=== PATIENT | male | born 1985 | race Caucasian/White ===

== ENCOUNTER 2020-12-24 21:40 | Emergency (ER) | payer BC ==
[2020-12-24 22:03] VITALS: BP 110/62; PULSE 67; TEMP 98.5; BMI 26.3
[2020-12-24] MEDS ORDERED: FLUORESCEIN NA 1 EA STRIP OU ONE (22:43)
[2020-12-24] MEDS ORDERED: TETRACAINE 0.5% OPHTH SOLN 2 ML BOTTLE OU ONE (22:43)
[2020-12-24] MEDS ORDERED: TETRACAINE 0.5% OPHTH SOLN 2 ML BOTTLE ONE (22:45)
[2020-12-24] MEDS ORDERED: FLUORESCEIN NA 1 EA STRIP ONE (22:45)
[2020-12-25] MEDS ORDERED: DIPHTH,PERTUSS(ACELL),TET 0.5 ML DISP.SYRIN IM ONE ×2 (00:03→00:08)
[2020-12-25] MEDS ORDERED: IBUPROFEN 400 MG TABLET (FP) PO ONE ×2 (01:51→01:54)
== END 2020-12-25 04:06 | disposition short-term general hospital (02) ==
LOC: JER 21:40
PROC: 3E0234Z Introduction of Serum, Toxoid and Vaccine into Muscle, Percutaneous Approach (ICD-10-PCS; principal; 2020-12-24)
DX: T15.01XA Foreign body in cornea, right eye, initial encounter (principal); T15.02XA Foreign body in cornea, left eye, initial encounter
CPT/HCPCS: 76529; 90715; 99284-25

== ENCOUNTER 2021-05-18 15:37 | Emergency (ER) | payer BC ==
[2021-05-18 16:03] VITALS: BP 128/79; PULSE 93; TEMP 97.9; BMI 25.7
[2021-05-18] MEDS ORDERED: IBUPROFEN 600 MG TABLET (FP) PO ONE ×2 (17:56→18:02)
== END 2021-05-18 18:10 | disposition home or self-care (01) ==
LOC: JERFT 15:37
PROC: 0HQGXZZ Repair Left Hand Skin, External Approach (ICD-10-PCS; principal; 2021-05-18)
DX: S61.412A Laceration without foreign body of left hand, initial encounter (principal)
CPT/HCPCS: 73130-TC-LT-FY; 99282-25